=== PATIENT | female | born 1980 | race Caucasian/White ===

== ENCOUNTER → 2020-08-03 16:20 | Outpatient (CLI) | payer OTHER, SELFPAY | PROVIDERS: PCP Family Medicine; Referring Provider Surgery; Visit Provider Surgery | DX: Z20.828 Contact with and (suspected) exposure to other viral communicable diseases (principal) | CPT/HCPCS: 87426; C9803 ==

== ENCOUNTER 2020-08-20 13:25 | Day surgery (SDC) | payer OTHER, SELFPAY ==
--- NOTE | 2020-08-19 19:31 | PCM.HP.BLA ---
History and Physical Date of Admission: 08/20/20 HPI: 40-year-old postmenopausal lady who was on Premarin replacement therapy presented with an abnormal mammogram earlier this year. She has no family history of breast cancer. She denies palpable breast masses. breast pain, nipple discharge or bleeding. She had bilateral breast reduction done in 2012 or 2013 in [place]. Her Grandmother with ovarian cancer - so?patient had undergone?COOPER/BSO because of dysmenorrhea. ? Mammogram 07/21/2020 There is 0.9 cm x 0.9 cm x 0.7 cm lobulated mass in the right breast at 10 o'clock middle depth 5 cm from the nipple. ?This lobulated mass is hypoechoic. ??No abnormal axillary nodes are seen. IMPRESSION: HIGHLY SUGGESTIVE OF MALIGNANCY - APPROPRIATE ACTION SHOULD BE TAKEN The 0.9 cm x 0.9 cm x 0.7 cm lobulated mass in the right breast is highly suggestive of malignancy. ?An ultrasound guided biopsy is recommended. ? US right breast 07/21/2020 There is 0.9 cm x 0.9 cm x 0.7 cm lobulated mass in the right breast at 10 o'clock middle depth 5 cm from the nipple. ?This lobulated mass is hypoechoic. ??No abnormal axillary nodes are seen. IMPRESSION: HIGHLY SUGGESTIVE OF MALIGNANCY - APPROPRIATE ACTION SHOULD BE TAKEN The 0.9 cm x 0.9 cm x 0.7 cm lobulated mass in the right breast is highly suggestive of malignancy. ?An ultrasound guided biopsy is recommended. ? Ultrasound-guided core needle biopsy of right breast on 07/27/2020 ? 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 EDK/lbk 07/28/2020 COMMENT An immunohistochemical stain for GATA3 is expressed within the invasive carcinoma, consistent with a breast primary. Immunohistochemical stains for estrogen and progesterone receptors as well as HER2 will be performed and the results reported separately. Dr. Asael Ahuja has reviewed select slides and concurs with the diagnosis of invasive carcinoma. Laboratory Developed Test (LDT) Disclaimer: Positive and negative controls stain appropriately. Performance characteristics of immunohistochemical, immunofluorescent and chromogenic in-situ hybridization tests have been determined by [facility] [place] ([facility]) in a manner consistent with CLIA requirements. One or more of these tests have not been cleared or approved by the FDA. [facility] is regulated under CLIA as qualified to perform high-complexity testing. These tests are used for clinical purposes. They should not be regarded as investigational or for research. Jacquie Torres D.O. (Electronic Signature) SPECIMEN SUBMITTED A: RIGHT BREAST NEEDLE CORE BIOPSY ADDITIONAL PROCEDURE(S) BREAST MARKERS WITH HER2 (ERBB2) IHC ? Date Ordered: ?07/29/2020 ? ? ? Date Reported: ?07/29/2020 Procedure Results and Interpretation Breast Biomarkers Template RESULTS Estrogen Receptor (ER) ? ?Positive (80%) ? ?Average stain intensity: Moderate to strong ? ?Status of internal controls: Internal controls absent ? ?External controls: ?Appropriately reactive Progesterone Receptor (PgR) ? ?Positive (50%) ? ?Average stain intensity: Moderate to strong ? ?Status of internal controls: Internal control cells absent ? ?External controls: Appropriately reactive HER2 (ERBB2) IMMUNOHISTOCHEMISTRY ASSAY Interpretation: POSITIVE for HER2 (ERBB2) Expression Score: 3+ Percentage of cells with uniform intense complete membrane stainin% (reported for 2+ and 3+ scores only) ? MRI breast with and without contrast on 08/10/2020 ? IMPRESSION: KNOWN BIOPSY PROVEN MALIGNANCY No MRI evidence of malignancy in left breast. Right Breast: 1.2 x 1.1 x 1.5 cm mass at 10:00 middle depth right breast is a biopsy-proven malignancy. ?Biopsy clip artifact is noted medial and posterior to the mass. ?There are multiple patchy foci of enhancement adjacent to the mass, however the span of the abnormal enhancement is smaller than the span of calcifications on the recent diagnostic mammogram. ?Surgical consult is recommended, if conservative treatment is desired and surgically possible, then 2 sites stereotactic biopsies is recommended to confirm the exact extent of the disease. ? She is referred to oncology for further evaluation, and discuss neoadjuvant chemotherapy for HER-2 positive breast cancer. She has no other health issues except for asthma and anxiety disorder. She had hives, hot flashes and insomnia after she stopped estrogen. She has no cough, shortness of breath or wheezing. She is also wearing a cast since she broke her right ankle couple months ago. She still has some pain when she walks, and swelling of her right leg. ? ? MEDICATIONS: ? predniSONE (DELTASONE) 10 mg tablet take 4 tablets once daily for 3 days 3 tablets once daily for 3 d... (REFER TO PRESCRIPTION NOTES). ? FLUoxetine (PROZAC) 10 mg capsule Take 10 mg by mouth once daily. ? metoprolol succinate ER (TOPROL XL) 25 mg 24 hr tablet Take 25 mg by mouth once daily. ? ? montelukast (SINGULAIR) 10 mg tablet Take 10 mg by mouth once daily. ? ? Levocetirizine (XYZAL) 5 mg tablet Take 5 mg by mouth once daily. ? MULTIVITAMIN ORAL Take 1 tablet by mouth once daily. ? ALPRAZolam (XANAX) 0.5 mg tablet Take 1 tablet by mouth at bedtime as needed for up to 30 days. ? . ALLERGIES: ? Fentanyl Shortness of Breath ? Cipro [Ciprofloxaci* Hives ? Penicillins Hives . ? PAST MEDICAL HISTORY: ? Anxiety state ? ? Asthma ? ? Dysmenorrhea ? ? Endometriosis ? ? Excessive or frequent menstruation ? ? Heavy periods . PAST SURGICAL HISTORY: ? BREAST BIOPSY Right 07/27/2020 ? BREAST REDUCTION ? 2012 ? EXTRACTION ERUPTED TOOTH ? 1994 ? wisdom teeth ? L'SCOPE DX W/WO BRUSHINGS/WASHINGS ? 1997 ? Laparoscopy, removed endometriosis with lasar ? L'SCOPE DX W/WO BRUSHINGS/WASHINGS ? ? ? Laparoscopy, removed endometriosis with lasar ? LAPAROSCOPY HYST W BSO 250G OR > ? 05/2012 ? TLH w/ BSO on ERT ? LIGATE FALLOPIAN TUBE ? 2007 ? Tubal ligation ? NOVASURE ? 2007 ? dr. villar . FAMILY HISTORY: ? Hypertension Mother ? ? Diabetes Father ? ? borderline ? Cancer Maternal Grandmother 35 ? ovarian recurred at 68 ? Coronary Artery Disease Maternal Grandfather ? ? Diabetes Paternal Grandmother ? ? Lipids Paternal Grandmother ? ? Cancer Paternal Grandfather ? ? lymphoma ? Diabetes Paternal Grandfather ? ? Lipids Paternal Grandfather ? . SOCIAL HISTORY: Tobacco Use ? Smoking status: Never Smoker ? Smokeless tobacco: Never Used Substance Use Topics ? Alcohol use: Yes ? ? Comment: Rarely ? Drug use: No . REVIEW OF SYSTEMS: CONSTITUTIONAL: No fevers, chills, nightsweats, unintended weight loss HEENT: Denies frequent or severe heaches, nasal congestion/sinus symptoms, problematic allergy problems. EYES: No diplopia or blurry vision. CARDIOVASCULAR: No chest pain, dyspnea, palpitations, orthopnea, PND, ankle edema. PULM: No dyspnea, unexplained cough. GI: No dysphagia/odynophagia, problematic reflux, constipation, diarrhea, changes in stool habits, hematochezia, melena. : No new urinary complaints, including dysuria, gross hematuria or pyuria. NEURO: No new balance problems, peripheral weakness/paresthesias or numbness of concern. MUSC-SKEL: No new joint pain, swelling, or erythema. PSY: No concerns regarding depression, anxiety or panic. INTEGUMENTARY: No new skin changes (rash, new or changing mole, new growth) ? PHYSICAL EXAMINATION: 40-year-old well-nourished well-developed female in no acute distress BP 165/97 Pulse 81 Temp (Src) 97.8 (Temporal) Ht 5' 6[Pt stated height due to wearing medical boot right foot[ (1.68m) Wt 260 lb (117.9kg) BMI 41.99 kg/(m^2). HEENT: Head is normocephalic, atraumatic. Sclerae white, conjunctivae pink. PEERL. EOMs are intact. Oropharynx is benign. LYMPHATICS: There is no palpable adenopathy in the neck, supraclavicular region, axillae, or groin. LUNGS: Lungs are clear to percussion and auscultation. HEART: Heart is normal without murmurs, gallops, or rubs. ABDOMEN: Soft and nontender without organomegaly. No masses can be palpated. EXTREMITIES: Are without edema. NEUROLOGIC: Exam is physiologic ?? ? IMPRESSION: newly diagnosed right breast cancer, need for neoadjuvant chemotherapy - need for portacath ? PLAN: I have discussed the above with the patient. Will plan on placement of portacath. I have explained the procedure to the patient. I have counseled the patient as to the risks of the procedure, including but not limited to: infection, bleeding, injury to any blood vessels/nerves, scar tissue, injury to the lungs such as hemothorax/pneumothorax, line sepsis, thromboses of blood vessels, non functioning of the port, wound infection, etc. ? the patient understands. ? The patient was offered a surgery/procedure . The provider and patient have discussed in detail the risk of exposure to and/or potential harm posed by the COVID-19 virus with having a surgery/procedure at this time versus the risk of? delaying the surgery/procedure. It is not possible to know either the risk of delaying the surgery or procedure or chance of getting an infection with perfect accuracy, but a joint decision was made between the patient and the provider ?to proceed at this time with the scheduled surgery/procedure. ? The patient wishes to proceed. ? I have answered all questions to the patient?s satisfaction and the patient has no further questions.
[2020-08-20] MEDS: Lactated Ringers 1,000 ML 75 ML IV (13:50)
[2020-08-20 13:54] VITALS: BP 151/82; PULSE 86; RESP 16; TEMP 37.2; O2SAT 97; BMI 41.6
[2020-08-20] MEDS: DiphenhydrAMINE 50 MG/ML Syringe 25 MG IV (15:16)
--- NOTE | 2020-08-20 16:05 | DCINST_ITS ---
Discharge Diet: No Restrictions Discharge Activity: Return to Normal Activity, May not drive while taking narcotic pain medications. Call your doctor if your incision/area has: Continuous Slow Oozing, Foul Smelling Discharge Call your doctor if you observe: Fever of 101 or Higher Additional Instructions: Recommended pain control regimen - May take 600 mg ibuprofen (Motrin) and then in 3-4 hours, may take 650 mg acetaminophen (Tylenol), then in 3-4 hours may take 600 mg ibuprofen, then in 3- 4 hours may take 650 mg acetaminophen and so on for 2-3 days May take narcotic pain medication for pain that is not controlled by above and at night for comfort through the night Leave dressings in place May get dressings wet in shower - do not scrub in the area and pat dry No follow up required, the oncology nurses will take care of the dressing with your first chemotherapy treatment. Leave steristrips in place, they will fall off on their own. Allergies/Adverse Reactions: Allergies ciprofloxacin [From Cipro] Allergy (Verified 08/20/20 13:30) Hives fentanyl Allergy (Verified 08/20/20 13:30) Shortness of breath Penicillins Allergy (Verified 08/20/20 13:30) Hives VICRYL SUTURES Allergy (Uncoded 08/20/20 13:30) Swelling Medications to take at Discharge Ascorbic Acid [Vitamin C] 500 mg PO DAILY 08/03/20 Cholecalciferol (Vitamin D3) [Vitamin D3] 10,000 unit PO DAILY 08/03/20 Levocetirizine Dihydrochloride [Xyzal] 5 mg PO DAILY 08/03/20 Metoprolol(XL)Succ [Toprol Xl (Beta Edelmira)] 25 mg PO QHS 08/03/20 Montelukast Sodium [Singulair] 10 mg PO DAILY 08/03/20 Omeprazole [Prilosec] 40 mg PO QHS 08/03/20 Vitamin B Complex [B Complex] 1 ea PO DAILY 08/03/20 Fluoxetine [Prozac] 10 mg PO DAILY 08/19/20 Prednisone 10 mg PO .TAPERED DOSE 08/19/20 Primary Care Physician: Donato Saldana MD [Primary Care Provider] - Test Results: Test results from this visit will be discussed in further detail at your follow- up appointment, if applicable. Please Follow Up With: Meka Nava MD - call if any problems/concerns
[2020-08-20] MEDS: Lidocaine 1% /Epi 1:100 (20ml) 20 ML Vial (16:53)
--- NOTE | 2020-08-20 17:21 | PCM.OPRPT ---
Report of Operation Date of Procedure: 08/20/20 Pre-Operative Diagnosis: right breast cancer, need for IV access for chemotherapy Post-Operative Diagnosis: same Surgery/Procedure Performed:: placement of permanent indwelling tunnelled catheter in left internal jugular vein with subcutaneous port Description of Surgical Findings:: normal left internal jugular vein anatomy to SVC Type of Anesthesia:: General Anesthesiologist: Jordan Monreal Specimen's removed: none Estimated Blood Loss (mL): < 10 ml Fluids Replaced: 600 ml RL Description of Procedure: After informed consent was given, the patient was brought to the Operating Room. Appropriate time out protocol was followed. The patient was then placed in the supine position. The patient was then given IV conscious sedation for anesthesia. The patient?s upper chest and neck were then prepped with a surgical skin preparation and sterile surgical drapes were placed. After proper landmarks were ascertained, the skin at the upper left chest area was then infiltrated with 1% xylocaine with epinephrine. A needle trocar was then inserted into the left subclavian vein, however, the left subclavian vein could not be accessed. The patient has a small skeletal frame relative to her body habitus. Another attempt was made to access the left subclavian vein but this was not successful. Also the patient could not be sedated enough for MAC/local and therefore anesthesia was changed to general LMA. The US machine was brought in for real time imaging. The US transducer was used to locate the left internal jugular vein. The needle trocar was then directed into the left internal jugular vein by US guidance. There was good aspiration of venous blood. A wire was then threaded into the needle trocar and this was visualized under fluoroscopy to ensure that the wire was in the left internal jugular vein. Once this was done, then the needle trocar was removed. A small skin eric was made with an 11 blade knife at the wire entrance site. The dilator with the introducer sheath attached was then placed over the wire into the left internal jugular vein via the Seldinger technique and this was visualized under fluoroscopy. The dilator and sheath were in proper position as visualized by fluoroscopy in real time. The wire and dilator were then removed. The catheter was then threaded into the introducer sheath and was positioned with its tip at the junction of the superior vena cava and the right atrium as visualized under fluoroscopy in real time. I personally reviewed all of the above fluoroscopic images and noted that the positions of the wire and catheter were correct so that the next step could be conducted. The catheter was flushed with a heparin saline mixture prior to placement. A subcutaneous pocket was then created caudad to the catheter insertion site. A transverse skin incision was made after the skin and subcutaneous tissues were infiltrated with local anesthetic. Blunt dissection was then used to create a space large enough for placement of the subcutaneous port. Hemostasis was carefully controlled with electrocautery. The port was sutured to the subcutaneous fascia using vicryl suture at three sites. The catheter was then tunneled into the subcutaneous pocket. The excess catheter was transected. The catheter was then attached to the subcutaneous port using refractory manager?s guidelines. The port was then placed in the subcutaneous pocket and the sutures were ligated. The subdermal incisional sites were reapproximated with interrupted vicryl suture. The skin was reapproximated with monocryl suture in a subcuticular fashion. Cavilon and steristrips were used for reinforcement of the skin closure and a sterile opsite dressing was applied. Sponge, needle, and instrument count were verified and correct at the time of skin closure. The patient was brought to the Recovery Room in stable condition Grafts/Implants Used: PowerPort Lot [id number], exp 2022-05-10 - Complications none noted - Admit VTE Documentation VTE Present on Admission: Yes VTE Mechan Device Prophylaxis: SCD's
[2020-08-20 17:30] VITALS: BP 137/86; BP 151/82; PULSE 97; RESP 16; TEMP 35.9; O2SAT 98
[2020-08-20 17:35] VITALS: BP 129/85; BP 151/82; PULSE 91; RESP 16; O2SAT 96
[2020-08-20 17:40] VITALS: BP 137/88; BP 151/82; PULSE 94; RESP 16; O2SAT 97
[2020-08-20 17:45] VITALS: BP 133/78; BP 151/82; PULSE 95; RESP 16; TEMP 36.6; O2SAT 96
--- NOTE | 2020-08-20 17:50 | RAD_ITS ---
STUDY: X-RAY CHEST REASON FOR EXAM: Female, 40 years old. PORT PLACEMENT TECHNIQUE: 1 view COMPARISON: Prior chest CT exam of 12/19/2013 FINDINGS: A left jugular Port-A-Cath terminates in the distal superior vena cava at the atrial caval junction. Negative for pneumothorax. The lungs are clear and expanded. There is no demonstrated pleural abnormality. Normal size heart. Normal mediastinum and ananya. Normal visualized pulmonary arteries. Normal visualized aortic arch and descending thoracic aorta. Normal visualized thoracic spine. Normal visualized ribs, clavicles, and shoulders. There is no demonstrated abnormality of the visualized soft tissue structures of the upper abdomen. RAD/CXR for Line Placement IMPRESSION: Port-A-Cath terminates in the distal superior vena cava at the atrial caval junction with no sequelae of line placement or other acute cardiopulmonary findings. Electronically Signed: Summer Orona MD at 19:01 EST , Service support ,
[2020-08-20 19:23] VITALS: BP 148/98; BP 151/82; PULSE 85; RESP 18; TEMP 36.7; O2SAT 100
== END 2020-08-20 19:24 | disposition home or self-care (01) ==
LOC: SDC 13:27 → AC 13:28
PROVIDERS: PCP Family Medicine; Referring Provider Surgery; Visit Provider Surgery
PROC: (CPT 36561; principal; 2020-08-20 15:10)
DX: Z45.2 Encounter for adjustment and management of vascular access device (principal); C50.411 Malignant neoplasm of upper-outer quadrant of right female breast; I47.1 Supraventricular tachycardia; J45.909 Unspecified asthma, uncomplicated; K21.9 Gastro-esophageal reflux disease without esophagitis; F41.9 Anxiety disorder, unspecified; Z78.0 Asymptomatic menopausal state
CPT/HCPCS: 36561; 71045; 77001; 87426; J7050; J7120; C1788